=== PATIENT | male | born 1970 | race Two or more races ===

== ENCOUNTER 2023-05-01 12:29 | Emergency (ER) | payer SELFPAY ==
[~2023-05-01] VITALS: Ht 172.7 cm; Wt 60.6 kg
[2023-05-01 12:43] VITALS: BP 104/64; PULSE 58; RESP 18; O2SAT 99
[2023-05-01] MEDS ORDERED: HYDROcodone-ACET 10/325MG TAB PO ONE (13:00)
[2023-05-01] MEDS ORDERED: HYDR-4902 PO (13:27)
== END 2023-05-01 15:05 | disposition home or self-care (01) ==
LOC: ER 12:29
DX: S42.002A Fracture of unspecified part of left clavicle, initial encounter for closed fracture (principal); F17.210 Nicotine dependence, cigarettes, uncomplicated; Z79.899 Other long term (current) drug therapy; V89.9XXA Person injured in unspecified vehicle accident, initial encounter; Y93.55 Activity, bike riding; Y92.89 Other specified places as the place of occurrence of the external cause; Y99.8 Other external cause status
CPT/HCPCS: 29105; 73030